=== PATIENT | female | born 1980 | race Caucasian/White ===

== ENCOUNTER 2019-06-22 01:01 | Emergency (ER) | payer OTHER ==
[~2019-06-22] VITALS: Ht 157.5 cm; Wt 70.3 kg
[~2019-06-22 01:01] MED LIST: NOHOMEMEDICATIONS
[2019-06-22] MEDS ORDERED: ZESTRIL5 MG PO (01:36)
[2019-06-22] MEDS ORDERED: TYLENOL WITH CO1 TA1 PO (02:26)
[2019-06-22 02:33] VITALS: BP 126/82
== END 2019-06-22 02:34 | disposition home or self-care (01) ==
LOC: M.ERS 01:01
DX: S63.267A Dislocation of metacarpophalangeal joint of left little finger, initial encounter (principal); I10 Essential (primary) hypertension; F17.210 Nicotine dependence, cigarettes, uncomplicated; Z91.040 Latex allergy status; W10.8XXA Fall (on) (from) other stairs and steps, initial encounter; Y93.89 Activity, other specified; Y92.89 Other specified places as the place of occurrence of the external cause; Y99.8 Other external cause status